=== PATIENT | female | born 1955 | race Caucasian/White ===

== ENCOUNTER 2017-06-29 14:28 | Emergency (ER) | payer OTHER ==
[~2017-06-29] VITALS: Ht 160 cm; Wt 68.0 kg
[~2017-06-29 14:28] MED LIST: ASCO500C16 PO; ASPI-1165 PO; ERGO400T3 PO; SERT100T PO; SUMA100T PO
--- NOTE | 2017-06-29 14:40 | NUR ---
Dr West at the bedside for MSE.
[2017-06-29] MEDS ORDERED: MORPHINE SULFATE 4 MG/1 ML DISP.SYRIN IM ONE (14:45)
[2017-06-29] MEDS ORDERED: MORPHINE SULFATE 4 MG/1 ML DISP.SYRIN ONE (14:45)
[2017-06-29] MEDS ORDERED: ONDANSETRON 4 MG/2 ML VIAL ONE (14:45)
[2017-06-29] MEDS ORDERED: ONDANSETRON 4 MG/2 ML VIAL IM ONE (14:45)
--- NOTE | 2017-06-29 15:26 | NUR ---
Patient discharged to home in stable conditon. Written and verbal after care instructions given. Patient verbalizes understanding of instructions. Pt left ER accompained by family.
[2017-06-29 15:27] VITALS: BP 132/76
== END 2017-06-29 15:27 | disposition home or self-care (01) ==
LOC: ER 14:29
DX: S93.601A Unspecified sprain of right foot, initial encounter (principal); Z79.82 Long term (current) use of aspirin; Z79.899 Other long term (current) drug therapy; W10.9XXA Fall (on) (from) unspecified stairs and steps, initial encounter; Y93.89 Activity, other specified; Y92.89 Other specified places as the place of occurrence of the external cause; Y99.8 Other external cause status
CPT/HCPCS: 73630; A4663; J2270; J2405

== ENCOUNTER 2021-12-19 09:53 | Emergency (ER) | payer MEDICARE, OTHER ==
[~2021-12-19] VITALS: Ht 165.1 cm; Wt 56.7 kg
[~2021-12-19 09:53] MED LIST changes: -ASCO500C16 PO; +ASCO500C6 PO
[2021-12-19] MEDS ORDERED: ALBUTEROL SULFATE 2.5 MG/3 ML NEBU NEB ONE (11:00)
[2021-12-19] MEDS ORDERED: predniSONE 10 MG TABLET PO ONE (11:00)
[2021-12-19] MEDS ORDERED: IPRATROPIUM BROMIDE 0.5 MG/2.5 ML NEBU NEB ONE (11:00)
[2021-12-19] MEDS ORDERED: predniSONE 20 MG TABLET ONE (11:17)
[2021-12-19] MEDS ORDERED: IPRATROPIUM BROMIDE 0.5 MG/2.5 ML NEBU ONE (11:18)
[2021-12-19] MEDS ORDERED: ALBUTEROL SULFATE 2.5 MG/3 ML NEBU ONE (11:19)
--- NOTE | 2021-12-19 11:25 | NUR ---
PT IS IN ROOM #2A. DR KING EVALUATED THE PT.
[2021-12-19] MEDS ORDERED: PRED50TA PO (12:44)
[2021-12-19] MEDS ORDERED: AZIT250T13 PO (12:44)
[2021-12-19] MEDS ORDERED: ALBU18HF2 INH (12:44)
--- NOTE | 2021-12-19 12:56 | NUR ---
PT WAS D/C'd TO HOME. D/C INSTRUCTIONS GIVEN TO THE PT BY DR KING.
[2021-12-19 12:57] VITALS: BP 136/75
== END 2021-12-19 12:58 | disposition home or self-care (01) ==
LOC: ER 09:53
DX: J45.909 Unspecified asthma, uncomplicated (principal); R91.8 Other nonspecific abnormal finding of lung field; Z86.69 Personal history of other diseases of the nervous system and sense organs; Z79.899 Other long term (current) drug therapy
CPT/HCPCS: 99284; 71045; 93005; 94640; J7512; A4663; J3590

== ENCOUNTER 2022-02-27 12:29 | Emergency (ER) | payer MEDICARE, OTHER ==
[~2022-02-27] VITALS: Ht 157.5 cm; Wt 56.7 kg
[~2022-02-27 12:29] MED LIST changes: +ALBU18HF2 INH; +AZIT250T13 PO; +PRED50TA PO
[2022-02-27] MEDS ORDERED: IPRATROPIUM BROMIDE 0.5 MG/2.5 ML NEBU NEB ONE (13:15)
[2022-02-27] MEDS ORDERED: ALBUTEROL SULFATE 2.5 MG/3 ML NEBU NEB ONE ×2 (13:15→15:00)
--- NOTE | 2022-02-27 13:37 | NUR ---
COVID AND FLU SWABS SENT TO LAB
[2022-02-27] MEDS ORDERED: IPRATROPIUM BROMIDE 0.5 MG/2.5 ML NEBU ONE (13:38)
[2022-02-27] MEDS ORDERED: ALBUTEROL SULFATE 2.5 MG/3 ML NEBU ONE ×2 (13:38→14:56)
[2022-02-27] MEDS ORDERED: predniSONE 50 MG TABLET ONE (14:53)
[2022-02-27] MEDS ORDERED: predniSONE 10 MG TABLET ONE (14:54)
[2022-02-27] MEDS ORDERED: predniSONE 10 MG TABLET PO ONE (15:00)
[2022-02-27] MEDS ORDERED: ALBU2.5V13 NEB (15:55)
[2022-02-27] MEDS ORDERED: BENZ-13 PO (15:56)
[2022-02-27] MEDS ORDERED: PRED20TA PO (16:09)
--- NOTE | 2022-02-27 16:12 | NUR ---
DC, RX AND FOLLOW UP INSRTUCTIONS GIVEN AND EXPLAINED TO PATIENT WHO STATES SHE UNDERSTANDS ALL INSTRUCTIONS
== END 2022-02-27 16:13 | disposition home or self-care (01) ==
LOC: ER 12:29
DX: R05.9 Cough, unspecified (principal); J45.901 Unspecified asthma with (acute) exacerbation; Z20.822 Contact with and (suspected) exposure to COVID-19; F41.9 Anxiety disorder, unspecified; Z90.710 Acquired absence of both cervix and uterus; F31.9 Bipolar disorder, unspecified; Z79.899 Other long term (current) drug therapy
CPT/HCPCS: 99284; 71045; 87400; 36415; 94640 ×2; U0003; C9803; J7512 ×2; J3590